=== PATIENT | female | born 1990 | race African-American/Black ===

== ENCOUNTER → 2017-01-20 | Day surgery (SDC) | payer OTHER ==
[~2017-01-20] MED LIST: CLIN150 PO; DILA4TAB2 PO; EPINEPHrine HCL (1:1000) 1 MG/ML VIAL ONE; FLEEENE3 RECTAL; HYDR-3533 PO; HYDROmorphone HCL PF 2 MG/ML VIAL ONE; IBUP800T23 PO; KETOROLAC TROMETHAMINE 30 MG/ML (IVP) VIAL IV PUSH ONE; LACTATED RINGER'S 1000 ML INJ 1,000 ML ONE; LIDOCAINE 1%/EPINEPHrine 1:100,000 SOLN 50 ML VIAL ONE; MIDAZOLAM HCL 2 MG/2 ML VIAL ONE; MIRA33504 PO; NAPR220T95 PO; ONDANSETRON HCL 4 MG/2 ML VIAL ONE; PROPOFOL 200 MG/20 ML AMP IV ONE; SODIUM CHLORIDE 0.9% 20 ML VIAL ONE; ceFAZolin 2 GM PREMIX 50 ML ONE; oxyCODONE/ACETAMINOPHEN 5 MG/325 MG TAB ONE
--- NOTE | 2017-01-31 23:31 | MP ---
cc: KACEY NOVOA M.D. DATE OF SURGERY 01/20/17 PREOPERATIVE DIAGNOSES Bilateral extensive hidradenitis of axilla with abscess. POSTOPERATIVE DIAGNOSIS Bilateral extensive hidradenitis of axilla with abscess. OPERATION Wide excision bilateral axillary hidradenitis SURGEON Dr. Chuck Novoa ANESTHESIA General INDICATIONS This is a 26-year-old black female with chronic hidradenitis involving both axillae in numerous spots and heavily scarred area with deep tracks. She underwent detailed explanation of the surgery in the office, particularly that in the acutely inflamed stage a closure or a skin graft is not appropriate and that the wounds will have to be left open. The patient and the mother agreed with the surgical plan, the possibility of bleeding, infection, chronic wound care, excessive pain and future surgeries was pointed out and they are eager to go ahead with the procedure. PROCEDURE IN DETAIL The patient was brought to the operating room, was given supine position. Anesthesia was started. Prep and drape was done. IV antibiotic had been given. The time-out was called and completed. The overall outline of the hidradenitis was marked both on the axillary side and on the chest side on both right and left sides. The area surrounding from outside towards the center were tumesced with mixture of saline, lidocaine with epi and additional epinephrine to allow hemostasis and also hydrodissection. The excision was carried out using a cutting and coagulating Bovie current starting straight from the skin into the normal appearing fat working from all sides until the center part was reached. It was not noted that the central part extends very deep under the anterior axillary fold, more so on the right than the left. The majority of the soft tissue and the gland bearing skin was excised and the areas were double checked for additional spots and then injecting more tumescent fluid as needed. The remaining deep areas were cleaned also looking for the axillary neurovascular bundles. The major neurovascular bundles were fairly close to the last portion of the deep abscess track on the right side. The left side was more superficial. The neurovascular bundles were protected and all the hidradenitis baring tissues were successfully removed and discarded. Hemostasis was completed. No major artery or vein bleeding was encountered. The smaller bleeding were coagulated. Areas were washed clean and packed with saline wet to dry Kimberly bandage dressing. The patient remained stable. Intraoperative blood loss less than 10-15 mL. There were no complications. signed, not fully reviewed MD DOUGLAS Lobato/ /11:55 AM /11:16 PM NEIDA
== END | disposition home or self-care (01) ==
LOC: ESDC 09:22
PROVIDERS: ATTEND Plastic Surgery
DX: L73.2 Hidradenitis suppurativa (principal)
CPT/HCPCS: 00400; 01610; 11450; 38525; 88305; 88307; J0171; J0690; J1170; J1885; J2250; J2405; J3010; J7120

== ENCOUNTER 2017-01-21 14:05 | Emergency (ER) | payer OTHER ==
[~2017-01-21] VITALS: Ht 167.6 cm; Wt 52.3 kg
[~2017-01-21 14:05] MED LIST changes: -DILA4TAB2 PO; -EPINEPHrine HCL (1:1000) 1 MG/ML VIAL ONE; -FLEEENE3 RECTAL; -HYDROmorphone HCL PF 2 MG/ML VIAL ONE; -KETOROLAC TROMETHAMINE 30 MG/ML (IVP) VIAL IV PUSH ONE; -LACTATED RINGER'S 1000 ML INJ 1,000 ML ONE; -LIDOCAINE 1%/EPINEPHrine 1:100,000 SOLN 50 ML VIAL ONE; -MIDAZOLAM HCL 2 MG/2 ML VIAL ONE; -MIRA33504 PO; -NAPR220T95 PO; -ONDANSETRON HCL 4 MG/2 ML VIAL ONE; -PROPOFOL 200 MG/20 ML AMP IV ONE; -SODIUM CHLORIDE 0.9% 20 ML VIAL ONE; -ceFAZolin 2 GM PREMIX 50 ML ONE; -oxyCODONE/ACETAMINOPHEN 5 MG/325 MG TAB ONE
[2017-01-21 14:08] VITALS: BP 113/76; PULSE 76; RESP 20; TEMP 98.6; O2SAT 100
--- NOTE | 2017-01-21 15:21 | PD ---
HPI Chief Complaint: Bleeding Time Seen by Provider: 14:46 Travel History International Travel<30 days: No Contact w/Intl Traveler<30days: No Traveled to known affect area: No History of Present Illness HPI 26-year-old female complains of bleeding from left axilla. Patient status post left axilla surgery for hidradenitis area patient states that she started having increasing bleeding from the left axilla area since surgery. Patient denies other new problem. PFSH Past Medical History ?: Not Social History Alcohol Use: No Tobacco Use: No Substance Use: No Allergies-Medications (Allergen,Severity, Reaction): Coded Allergies: No Known Allergies (Unverified , 01/21/17) Reported Meds & Prescriptions Reported Meds & Active Scripts Active Reported Aleve (Naproxen Sodium) 220 Mg Tab 220 Mg PO BID PRN Dilaudid (Hydromorphone HCl) 4 Mg Tab 4 Mg PO Q6H PRN Review of Systems General / Constitutional: No: Fever Eyes: No: Visual changes HENT: No: Headaches Cardiovascular: No: Chest Pain or Discomfort Respiratory: No: Shortness of Breath Gastrointestinal: No: Abdominal Pain Genitourinary: No: Dysuria Musculoskeletal: No: Pain Skin: No Rash Neurologic: No: Weakness Psychiatric: No: Depression Endocrine: No: Polydipsia Hematologic/Lymphatic: No: Easy Bruising Physical Exam Narrative GENERAL: Well-nourished, well-developed patient. SKIN: Focused skin assessment warm/dry. HEAD: Normocephalic. EYES: No scleral icterus. No injection or drainage. NECK: Supple, trachea midline. No JVD or lymphadenopathy. CARDIOVASCULAR: Regular rate and rhythm without murmurs, gallops, or rubs. RESPIRATORY: Breath sounds equal bilaterally. No accessory muscle use. GASTROINTESTINAL: Abdomen soft, non-tender, nondistended. MUSCULOSKELETAL: No cyanosis, or edema. BACK: Nontender without obvious deformity. No CVA tenderness. Patient has a large surgical wound on left axilla with active arterial bleeding sources. Data Data Last Documented VS Vital Signs Date Time Temp Pulse Resp B/P Pulse Ox O2 Delivery O2 Flow Rate FiO2 01/21/17 14:08 98.6 76 20 113/76 100 Room Air MDM Medical Decision Making Medical Screen Exam Complete: Yes Emergency Medical Condition: Yes Differential Diagnosis Differential diagnosis including bleeding from surgical wound. Narrative Course 26-year-old female with active bleeding from left axilla status post left axilla surgery for hidradenitis. Dr. Novoa, surgeon came to see the patient and ligated the active bleeding source. 3-0 Vicryl suture was used. Melita powder applied. Dressing applied. Patient advised to follow-up with him in the office tomorrow morning. Diagnosis Primary Impression: Encounter for postoperative wound check Additional Impression: Bleeding Patient Instructions: General Instructions Additional Instructions: Follow-up with plastic surgeon in a.m. as scheduled. Return if worse. Med/Other Pt SpecificInfo: No Change to Meds Disposition: 01 DISCHARGE HOME Condition: Stable Jarred Ford MD Jan 21, 2017 15:21
[2017-01-21] MEDS ORDERED: DILA4TAB2 PO (15:36)
[2017-01-21] MEDS ORDERED: NAPR220T95 PO (15:36)
--- NOTE | 2017-01-22 07:58 | MB ---
cc: KACEY CALVERT MD DATE OF CONSULTATION 01/21/2017 REASON FOR CONSULTATION Left axillary postoperative bleeding. HISTORY This is a 26-year-old black female who underwent surgery by myself on 12/19/2016 for bilateral extensive hidradenitis with wide resection. She had a small vessel bleed immediately postop in the recovery room that was suture ligated on the right side. She was asked to come and change the dressing at the [facility] by the nursing staff. The patient went to the clinic in the morning and the dressing on the right side was removed. The dressing on the left side was noted to be very adherent and the gauze was noted to be saturated. Only part of the dressing was removed and a new dressing was placed. The right side was dressed as well and the patient was allowed to go home. Subsequently, she called a few hours later saying that the left side the new dressing had become situated. She was instructed to put pressure on the area and return to the emergency room at [facility] where she is being seen. The patient otherwise is stable. PHYSICAL EXAM The examination shows the 26-year-old black female resting comfortably in the ER bed. VITAL: Normal. GENERAL: She is not in any distress. She is in a moderate amount of pain when the dressings are manipulated. There is a steady drip noted on the lower part of the wound on the medial arm side. The axilla itself is actually tightly packed. The dressing was soaked with saline and was slowly peeled off. There are about four arterial small vessels noted to be pumping mostly on the chest side of the wound. These were controlled with hemostats in the beginning and the area was anesthetized with lidocaine 1% with epi, prepped with Betadine and suture ligated using 3-0 Vicryl suture ligature. The active bleeding points were ligated. Four arterial points needed to be ligated. The rest appeared to be oozing with some minor capillary bleeding. Local pressure was applied for a few minutes. No active venous or arterial bleeding was present. The wound needed some additional hemostatic sponge or powder which was not available in the ER. The emergency room physician, Dr. Ford, has kindly agreed to do this for me. The hemostatic material will be obtained from the operating room, applied to the wound and the wound dressed with Xeroform, 4x4 and tape. The patient was instructed to come back and see me in the [facility] tomorrow for the first dressing change. Approximate blood loss during the procedure 50-60 cc total. The patient remained stable. No other issues. signed, not fully reviewed MD DOUGLAS Lobato/LUIS ANTONIO /7:22 AM :39 AM MTDPasha
== END 2017-01-21 16:12 | disposition home or self-care (01) ==
LOC: NEPD 14:05
DX: L76.22 Postprocedural hemorrhage of skin and subcutaneous tissue following other procedure (principal)
CPT/HCPCS: 12001

== ENCOUNTER 2017-01-29 16:52 | Emergency (ER) | payer OTHER ==
[~2017-01-29 16:52] MED LIST changes: -CLIN150 PO; +DILA4TAB2 PO; -HYDR-3533 PO; -IBUP800T23 PO; +NAPR220T95 PO
[2017-01-29 16:53] VITALS: BP 118/84; PULSE 98; RESP 20; TEMP 98.7; O2SAT 100
--- NOTE | 2017-01-29 17:22 | PD ---
Physical Exam Time Seen by Provider: 17:18 Narrative 26 yo F c/o abd pain and constipation. Had surgery to arms, due to infection a week ago, and was given Dilaudid. No bowel movement in 1 week. Tried OTC treatments with no success. Denies fever, vomiting. VSS. Patient seen in triage. Awaiting bed placement. Data Data Last Documented VS Vital Signs Date Time Temp Pulse Resp B/P Pulse Ox O2 Delivery O2 Flow Rate FiO2 01/29/17 16:53 98.7 98 20 118/84 100 Room Air MDM Supervised Visit with LEANDRA: Shilpa Mcknight Jan 29, 2017 17:22
--- NOTE | 2017-01-29 19:56 | PD ---
HPI Chief Complaint: GI Complaint Time Seen by Provider: 19:10 Travel History International Travel<30 days: No Contact w/Intl Traveler<30days: No Traveled to known affect area: No History of Present Illness HPI Patient 26-year-old female who is postoperative from hidradenitis super TV operation and bilateral axilla. Patient had procedure approximately 10 days ago and is taking Dilaudid tablets since then. Patient presents today because she is feeling "like there is [stool] at the edge of her rectum that out." Patient states she's not have a regular bowel movement in some time. She also endorses some lower quadrant abdominal cramping. Denies any vaginal bleeding vaginal discharge blood in the stool dark in the stool. She is tried fleets enemas at home held in for 24 minutes before tending stool which is unsuccessful. PFSH Past Medical History Medical History: Denies Significant Hx ?: Not : 1 Para: 1 Past Surgical History Other Surgery: Yes (surgery to bilateral armpits ) Social History Alcohol Use: No Tobacco Use: No Substance Use: No Allergies-Medications (Allergen,Severity, Reaction): Coded Allergies: No Known Allergies (Unverified , 01/21/17) Reported Meds & Prescriptions Reported Meds & Active Scripts Active Miralax Powder (Polyethylene Glycol 3350 Powder) 17 Gm Powd 17 Gm PO DAILY 7 Days Mix and dissolve one measuring cap-ful (17 grams) in water or juice. Fleet Enema Rectal (Sodium Phosphates Rectal) 7-19 Gm/118 Ml Enem 118 Ml RECTAL Q8HR PRN Review of Systems Except as stated in HPI: all other systems reviewed are Neg Physical Exam Narrative GENERAL: Well-developed well-nourished, no apparent distress. SKIN: Focused skin assessment warm/dry. Postoperative wounds to bilateral axillae clean dry and intact. HEAD: Atraumatic. Normocephalic. EYES: Pupils equal and round. No scleral icterus. No injection or drainage. ENT: No nasal bleeding or discharge. Mucous membranes pink and moist. NECK: Trachea midline. No JVD. CARDIOVASCULAR: Regular rate and rhythm. No murmur appreciated. RESPIRATORY: No accessory muscle use. Clear to auscultation. Breath sounds equal bilaterally. GASTROINTESTINAL: Abdomen soft, non-tender, nondistended. Hepatic and splenic margins not palpable. MUSCULOSKELETAL: No obvious deformities. No clubbing. No cyanosis. No edema. Rectal exam shows hard stool at the very tip finger. Patient impaction was partially removed limited secondary to patient discomfort. No gross blood during rectal exam. NEUROLOGICAL: Awake and alert. No obvious cranial nerve deficits. Motor grossly within normal limits. Normal speech. PSYCHIATRIC: Appropriate mood and affect; insight and judgment normal. Data Data Last Documented VS Vital Signs Date Time Temp Pulse Resp B/P Pulse Ox O2 Delivery O2 Flow Rate FiO2 01/29/17 20:00 88 20 118/75 99 Room Air 01/29/17 16:53 98.7 Orders Ed Urine Pregnancytest Poc (01/29/17 19:55) Abdomen, Kub Only (01/29/17 ) MDM Medical Decision Making Medical Screen Exam Complete: Yes Emergency Medical Condition: Yes Differential Diagnosis Impaction, constipation, opiate-induced constipation. Narrative Course Patient was roomed in emergency department she was partially disimpacted secondary to her discomfort. She was offered pain medicine and declined. test was negative in the emergency department. X-ray confirms a fair amount of stool in both the descending transverse portions of the colon there was a small amount ascending on as well. Discussed with the patient's of the medic management home recommend repeat fleets enemas and follow-up with her surgeon as well as her primary care physician. She would like to try a disimpaction again and it was reattempted prior to discharge however patient still having significant discomfort and was unable to push the stool down into reach. Diagnosis Primary Impression: Constipation Qualified Code: K59.01 - Slow transit constipation Med/Other Pt SpecificInfo: Prescription(s) given Scripts Polyethylene Glycol 3350 Powder (Miralax Powder)17 Gm Powd17 Gm PO DAILY 7 Days Ref 0 Mix and dissolve one measuring cap-ful (17 grams) in water or juice. Prov:Monico Tavares MD 01/29/17 Sodium Phosphates Rectal (Fleet Enema Rectal)7-19 Gm/118 Ml [id number] Ml RECTAL Q8HR PRN (CONSTIPATION) #5 BOTTLE Ref 0 Prov:Monico Tavares MD 01/29/17 Disposition: 01 DISCHARGE HOME Condition: Stable Monico Tavares MD Jan 29, 2017 19:56
[2017-01-29 20:00] VITALS: BP 118/75; PULSE 88; RESP 20; O2SAT 99
[2017-01-29] MEDS ORDERED: MIRA33504 PO (21:38)
[2017-01-29] MEDS ORDERED: FLEEENE3 RECTAL (21:38)
--- NOTE | 2017-01-29 21:43 | RADRPT ---
EXAM DATE/TIME: 01/29/2017 21:17 [facility] COMPARISON: No previous studies available for comparison. INDICATIONS : Constipation. MEDICAL HISTORY : None. SURGICAL HISTORY : None. ENCOUNTER: Initial ACUITY: 1 day PAIN SCORE: 10/28 LOCATION: entire abdomen. FINDINGS: Supine view of the abdomen was performed. A moderate amount of stool is noted throughout the colon. N o abnormal masses, calcifications, or organomegaly is seen. The osseous structures are unremarkable. CONCLUSION: Moderate amount of stool throughout the colon characteristic of the history of silva rubyrafa. Lamin Vee MD on January 29, 2017 at 21:41 Board Certified Radiologist. This report was verified electronically.
== END 2017-01-29 22:05 | disposition home or self-care (01) ==
LOC: NEPD 16:52
DX: K59.00 Constipation, unspecified (principal)
CPT/HCPCS: 74000; 84703; 99283

== ENCOUNTER 2018-04-23 20:59 | Inpatient (IN) ==
[2018-04-23] MEDS ORDERED: Clindamycin 900 mg/NS Premix 900 MG/50 ML PIGGYBACK IV.SIG ONE (23:08)
[2018-04-23] MEDS ORDERED: Morphine Sulfate Inj 2 MG/ML Vial IV.PUSH ONE (23:13)
[2018-04-23] MEDS ORDERED: Sod Chloride 0.9% Inj 1,000 ML IV.SIG ONE (23:13)
[2018-04-23 23:59] LABS: Baso % (Auto) 0.3 % (0.0-2.0); Eos # (Auto) 0.2 th/mm3 (0.0-0.4); Eos % (Auto) 2.2 % (0.0-4.0); Hematocrit 38.6 % (35.0-46.0); Hemoglobin 12.6 gm/dL (11.6-15.3); Lymph # (Auto) 2.2 th/mm3 (1.0-4.8); Lymph % (Auto) 20.5 % (9.0-44.0); Mean Corpuscular HGB Conc 32.7 % (32.0-36.0); Mean Corpuscular Hemoglobin 29.9 pg (27.0-34.0); Mean Corpuscular Volume 91.4 fL (80.0-100.0); Mean Platelet Volume 6.9 fL (7.0-11.0); Mono # (Auto) 0.8 th/mm3 (0.0-0.9); Mono % (Auto) 7.4 % (0.0-8.0); Neut # (Auto) 7.6 th/mm3 (1.8-7.7); Neut % (Auto) 69.6 % (16.0-70.0); Platelet Count 325 th/mm3 (150-450); Red Blood Count 4.22 mil/mm3 (4.00-5.30); Red Cell Distribution Width 12.7 % (11.6-17.2); White Blood Count 10.9 th/mm3 (4.0-11.0)
--- NOTE | 2018-04-24 00:02 | ED ---
HPI General Chief complaint: Skin/Abscess/Foreign Body Stated complaint: Poss Cyst in left breast Time Seen by Provider: 04/23/18 23:00 Source: patient Mode of arrival: ambulatory Limitations: no limitations History of Present Illness HPI narrative: Patient is a 27-year-old female presenting to the emergency department for evaluation of possible abscess to her left breast. Patient states it started yesterday as a small pimple appearing area, today it spread across her whole breast. She reports 9 out of 10 pain, worse with palpation. She denies any fever, chills, nausea, vomiting, chest pain or shortness of breath. Patient had an excision to bilateral axilla in January due to hidradenitis. She is followed as outpatient for this and reports no issues with that procedure. MD complaint: abscess/boil and discoloration Onset (ago): day(s) (1) Location: chest (Left breast) Severity: severe Severity scale (1-10): 9 Quality: aching and constant Pain Consistency: constant Relieving factors: none Exacerbating factors: palpation Context: none Associated symptoms: denies other symptoms Treatments prior to arrival: none Related Data Previous Rx's Medication Instructions Recorded amoxicillin-pot clavulanate 1 tab PO Q12H 10 Days #20 tab 04/24/18 [Augmentin] Allergies Allergy/AdvReac Type Severity Reaction Status Date / Time No Known Allergies Allergy Unverified 04/23/18 22:45 Review of Systems Except as stated in HPI: all other systems reviewed are negative Constitutional Denies fever(s) Integumentary/Breasts Reports breast skin changes and Reports change in breast shape PMFSH Medical History Medical History Encounter for biopsy (Acute) Patient denies medical problems (Acute) Social History Social History Substance History: No History of Abuse Second Hand Smoke Exposure: No Smoking Status: Never smoker How Often Do You Have a Drink Containing Alcohol: Never Recent Travel in [facility] within the Last 8 Weeks: No Recent Out of Country Travel within the Last 8 Weeks: No Immunization History Tetanus Immunization: <5 Years Hx Influenza Vaccine This Season: No Exam Narrative Exam Narrative: GENERAL: Well-developed, well-nourished, alert -[place] female. Presenting in no acute distress. SKIN: Focused skin assessment warm/dry. Surgical excisions to bilateral axilla , no foul odor drainage noted. There is an 11 x 9 cm area of erythema to the left breast with a 6 cm x 4 cm area of fluctuance adjacent to the left nipple. Significantly tender to palpation and warm to the touch. No discharge from nipple noted. HEAD: Atraumatic. Normocephalic. EYES: Pupils equal and round. No scleral icterus. No injection or drainage. ENT: No nasal bleeding or discharge. Mucous membranes pink and moist. NECK: Trachea midline. No JVD. CARDIOVASCULAR: Regular rate and rhythm. No murmur appreciated. RESPIRATORY: No accessory muscle use. Clear to auscultation. Breath sounds equal bilaterally. GASTROINTESTINAL: Abdomen soft, non-tender, nondistended. Hepatic and splenic margins not palpable. MUSCULOSKELETAL: No obvious deformities. No clubbing. No cyanosis. No edema. NEUROLOGICAL: Awake and alert. No obvious cranial nerve deficits. Motor grossly within normal limits. Normal speech. PSYCHIATRIC: Appropriate mood and affect; insight and judgment normal. Course Initial Documented Vital Signs Temperature 99.2 F 04/23/18 22:45 Pulse Rate 81 04/23/18 22:45 Respiratory Rate 16 04/23/18 22:45 Blood Pressure 104/72 04/23/18 22:45 Pulse Oximetry 100 04/23/18 22:45 Last Documented Vital Signs Temperature 98.0 F 04/24/18 16:00 Pulse Rate 77 04/24/18 16:00 Respiratory Rate 18 04/24/18 16:00 Blood Pressure 103/63 04/24/18 16:00 Pulse Oximetry 100 04/24/18 16:00 Medical Decision Making LEANDRA Attestation LEANDRA supervised visit: Yes Attestation: I, Dr. Tavares, have reviewed the advance practice practitioner's documentation and am in agreement, met with the patient face to face, made the diagnosis, and the medical decision making was done by me. *My assessment and Findings: Patient seen and examined by me in addition to Lisa STEELE, 27-year-old female presents emergency department with recurrent left breast abscess. Fairly sizable on examination and I have suggested that she needs to be placed in observation status for consideration of surgical source control. Given the location of the breast abscess I think that she would do well to have a general surgery consult rather than the incised and drained in the emergency department. This was discussed with Jamal , she will call the appropriate consult MDM Narrative Medical decision making narrative: Patient is a 27-year-old female presenting with 1 day of increasing redness and swelling to her left breast. Exam appears consistent with an abscess, patient's vital signs are stable. Breast ultrasound and labs ordered and pending. IV access established. Patient will be given a dose of morphine prior to the ultrasound for pain relief. Labs reviewed, no acute findings identified. Ultrasound shows a bilobed abscess at the 6 o'clock position to the breast. Patient has received clindamycin and metronidazole. Due to the rapid progression of the cellulitis as well as the abscess in the breast itself. Patient will be admitted for general surgery consult as well as IV antibiotics. This was discussed with Dr. Lai who accepted admission. Differential Diagnosis Differential Diagnosis: Abscess versus cellulitis versus mastitis versus malignancy versus other Lab Data Result diagrams: 04/23/18 23:25 04/23/18 23:25 Lab Results 04/23/18 04/23/18 04/24/18 Range/Units 23:25 23:25 Unknown WBC 10.9 (4.0-11.0) th/mm3 RBC 4.22 (4.00-5.30) mil/mm3 Hgb 12.6 (11.6-15.3) gm/dL Hct 38.6 (35.0-46.0) % MCV 91.4 (80.0-100.0) fL MCH 29.9 (27.0-34.0) pg MCHC 32.7 (32.0-36.0) % RDW 12.7 (11.6-17.2) % Plt Count 325 (150-450) th/mm3 MPV 6.9 L (7.0-11.0) fL Neut % (Auto) 69.6 (16.0-70.0) % Lymph % (Auto) 20.5 (9.0-44.0) % [place] % (Auto) 7.4 (0.0-8.0) % Eos % (Auto) 2.2 (0.0-4.0) % Baso % (Auto) 0.3 (0.0-2.0) % Neut # (Auto) 7.6 (1.8-7.7) th/mm3 Lymph # (Auto) 2.2 (1.0-4.8) th/mm3 [place] # (Auto) 0.8 (0.0-0.9) th/mm3 Eos # (Auto) 0.2 (0.0-0.4) th/mm3 Baso # (Auto) 0.0 (0.0-0.2) th/mm3 WBC Differential . Differential Comment Auto diff final Sodium 143 (136-145) meq/L Potassium 4.0 (3.5-5.1) meq/L Chloride 108 H (98-107) meq/L Carbon Dioxide 25.4 (21.0-32.0) meq/L Anion Gap 10 (5-15) meq/L BUN 9 (7-18) mg/dL Creatinine 0.78 (0.50-1.00) mg/dL Estimated GFR Greater than 89 (>89) mL/min Random Glucose 92 (74-106) mg/dL Calcium 9.2 (8.5-10.1) mg/dL Urine Opiates Screen Pos H (Neg) Ur Barbiturates Screen Neg (Neg) Ur Amphetamines Screen Neg (Neg) U Benzodiazepines Scrn Neg (Neg) Urine Cocaine Screen Neg (Neg) U Cannabinoids Screen Neg (Neg) Imaging Data Radiologist's impression: ITS Impressions Needle Aspiration US 04/24/18 00:00 CONCLUSION: 1. Uncomplicated ultrasound-guided aspiration of 2.9 cm subareolar left breast abscess. Breast Ultrasound 04/24/18 23:45 CONCLUSION: Complex bilobed fluid collection at the 6:00 position in the left breast suggesting abscess in the proper clinical setting. Discharge Plan Discharge Disposition Patient Disposition: 30 Still Patient Discharge Condition Condition: Stable Discharge Order Discharge Orders: Discharge Order (Routine); Ordered 04/24/18 Ordered By: Chhaya Riley Discharge Details Anticipated Discharge Date: 04/24/18 Discharge Problem: Abscess of breast Physicians Team ED Provider: Monico Tavares ED Midlevel Provider: Lisa Solano Primary Care Provider: UNKNOWN, Attending Provider: Tahir Jensen Other Providers: Danny Samuel Status ED Status: Left Department Discharge Information Discharge Date/Time: 04/24/18 04:01
[2018-04-24 00:13] LABS: Anion Gap 10 meq/L (5-15); Blood Urea Nitrogen 9 mg/dL (7-18); Calcium 9.2 mg/dL (8.5-10.1); Carbon Dioxide 25.4 meq/L (21.0-32.0); Chloride 108 meq/L (98-107); Glomerular Filtration Rate Greater Than 89 mL/min (>89); Glucose,Random 92 mg/dL (74-106); Sodium 143 meq/L (136-145)
[2018-04-24] MEDS ORDERED: Morphine Inj 4 MG/ML Vial IV.PUSH ONE ×2 (01:00→01:06)
--- NOTE | 2018-04-24 01:46 | US ---
EXAM DATE: 04/24/2018 1:32 AM EDT AGE/SEX: 27 years / Female INDICATIONS: Left breast abscess. CLINICAL DATA: This is the patient's initial encounter. Patient reports that signs and symptoms have been present for 2 days and indicates a pain score of 8/10. MEDICAL/SURGICAL HISTORY: . Hidradenitis. . Excisions to bilateral axillas due to hidradenitis . COMPARISON: No prior exams available for comparison. TECHNIQUE: Real-time ultrasound examination was performed using a high-frequency transducer. Conven tional and compound scanning techniques were used. FINDINGS: Focused sonographic examination of the left breast was performed in the area of possible infection. A t the 6:00 position 1 to 2 cm from the nipple, there is a bilobed complex fluid collection measuring 3.9 x 3.4 x 3.8 cm in aggregate. CONCLUSION: Complex bilobed fluid collection at the 6:00 position in the left breast suggesting abscess in the pr oper clinical setting. Electronically signed by: Anuj Holguin MD 04/24/2018 1:45 AM EDT
[2018-04-24] MEDS ORDERED: Temazepam 15 MG Capsule PO PRN (03:01)
[2018-04-24] MEDS ORDERED: Acetaminophen 325 MG Tablet PO PRN (03:01)
[2018-04-24] MEDS ORDERED: Bisacodyl 10 MG Supp RECTAL PRN (03:01)
[2018-04-24] MEDS ORDERED: Vancomycin Inj 1 GM/200 ML PIGGYBACK IV.SIG ONE (03:04)
[2018-04-24] MEDS: Sod Chloride 0.9% Inj 1,000 ML IV.CONT SCH ×2 (03:53→15:08)
[2018-04-24] MEDS ORDERED: Vancomycin Consult Pharmacy 1 EACH OTHER SCH (04:00)
--- NOTE | 2018-04-24 10:56 | P.HP ---
<Chhaya Riley W - Last Filed: 04/24/18 18:27> History of Present Illness Primary Care Physician: Dr. Nubia Monsivais Chief Complaint: left breast pain and swelling History of Present Illness: This is a 27-year-old female patient with past medical history which includes hidradenitis. Patient also had right axillary hidradenitis with abscess 2016 then on 12/19/2016 patient underwent bilateral hidradenitis resection with Dr. Lofton. Patient is healing by secondary intention dressing changes every other day. Patient presents emergency department with complaints of left breast edema and pain. Patient reports that (2 days ago) she had itching on her left breast. Thursday patient noticed small pimple appearing area, today it spread across her whole breast. She reports 9 out of 10 pain at its worse, exacerbated by palpation. Patient reports that earlier today in the hospital the area on left breast, "popped and drained on its own." After the area spontaneously drained the pain resolved. She denies any fever, chills, nausea, vomiting, chest pain or shortness of breath. PMH: hidradenitis. Past surgical history: 12/19/2016 patient underwent bilateral hidradenitis resection with Dr. Lofton. FMH: reviewed and noncontributory Social: one drink 1-2 times a month when she goes out to eat denies tobacco use now or in the past denies illicit drug use - Diagnosis (1) Abscess of breast Estimated Total Length of Stay (Days): 3 Plans for Post Hospital Care: Home Review of Systems All other systems reviewed negative except as stated in [facility] - History History Provided By: Patient - Medical History Medical History: Medical History (Last Reviewed 04/24/18 @ 00:04 by CEDRIC Mohr) Encounter for biopsy Patient denies medical problems - Tobacco History Second Hand Smoke Exposure: No Smoking Status: Never smoker - Alcohol History How Often Do You Have a Drink Containing Alcohol: Never - Substance Use History Substance History: No History of Abuse - Travel History Recent Travel in the [place] Within the Last 8 Weeks: No Recent Travel Out of the Country Within the Last 8 Weeks: No - Immunization History Tetanus Immunization: <5 Years Hx Influenza Vaccine This Season: No Medications and Allergies Allergies Allergy/AdvReac Type Severity Reaction Status Date / Time No Known Allergies Allergy Unverified 04/23/18 22:45 Active Medications: Active Medications Acetaminophen (Tylenol) 650 mg PO Q4H PRN PRN Reason: Temp > 100.4 Hydrocodone Bitart/Acetaminophen ([place] 7.5/325) 1 tab PO Q6H PRN PRN Reason: breast pain Last Admin: 04/24/18 08:33 Dose: 1 tab Al Hydroxide/Mg Hydroxide (Milk Of Magnesia Liq) 30 ml PO Q12H PRN PRN Reason: Mild Constipation Bisacodyl (Dulcolax Supp) 10 mg RECTAL DAILY PRN PRN Reason: SEVERE CONSITIPATION Sodium Chloride (Ns Inj) 1,000 mls @ 100 mls/hr IV.CONT .Q10H [place] Last Admin: 04/24/18 03:53 Dose: 100 mls/hr Pharmacy Profile Note (Vancomycin Consult Pharmacy) 0 mls @ 0 mls/hr OTHER UNSCH [place] Vancomycin HCl 1,250 mg/ (Sodium Chloride) 262.5 mls @ 250 mls/hr IV.SIG Q12H [place] Lactulose (Lactulose Liq) 30 ml PO DAILY PRN PRN Reason: SEVERE CONSITIPATION Miscellaneous Information ([facility] Ordered Lab Info) 0 each OTHER ONCE ONE Stop: 04/25/18 14:46 Ondansetron HCl (Zofran Inj) 4 mg IV.PUSH Q6H PRN PRN Reason: NAUSEA OR VOMITING Sennosides (Senokot) 17.2 mg PO Q12H PRN PRN Reason: Moderate Constipation Sodium Chloride (Ns Flush) 2 ml IV.FLUSH PRN PRN PRN Reason: FLUSH AFTER USING IV ACCESS Temazepam (Restoril) 15 mg PO HS PRN PRN Reason: INSOMNIA Exam Vital signs: Vital Signs 04/23/18 22:45 04/24/18 04:57 04/24/18 08:00 Temperature 99.2 F 98.3 F 97.9 F Pulse Rate 81 70 77 Respiratory Rate 16 16 17 Blood Pressure 104/72 93/57 L 103/67 Pulse Oximetry 100 99 100 Intake & Output 04/23/18 04/24/18 04/24/18 18:59 06:59 18:59 Intake Total 1150 / 1150 Balance 1150 / 1150 Weight 65.771 kg Intake: IV 1150 / 1150 Cleocin 900 mg/NS Premix 900 mg 50 / 50 In 50 ml @ 100 mls/hr IV.SIG ONCE ONE Rx#:[id number] NS Inj 1,000 ML @ Wide Open IV. 1000 / 1000 SIG BOLUS ONE Rx#:[id number] Flagyl 500 MG Inj 100 ML @ 100 100 / 100 mls/hr IV.SIG ONCE ONE Rx#: [id number] Narrative: GENERAL: This is a well-nourished, well-developed patient, in no apparent distress. SKIN: Bilateral axilla healing by secondary intention dressing clean dry and intact. dressing removed area clean appears to be healing well no drainage noted. area left breast no drainage at this time, edema has improved nonpainful CARDIOVASCULAR: Regular rate and rhythm RESPIRATORY: Clear to auscultation. Breath sounds equal bilaterally. GASTROINTESTINAL: Abdomen soft, non-tender, nondistended. Normal active bowel sounds MUSCULOSKELETAL: Extremities without clubbing, cyanosis, or edema. NEURO: Alert & Oriented x4 to person, place, time, situation. Moves all ext x4 Results - Labs CBC & Chem 7: 04/23/18 23:25 04/23/18 23:25 Labs: Laboratory Results - last 24 hr 04/23/18 04/23/18 23:25 23:25 WBC 10.9 RBC 4.22 Hgb 12.6 Hct 38.6 MCV 91.4 MCH 29.9 MCHC 32.7 RDW 12.7 Plt Count 325 MPV 6.9 L Neut % (Auto) 69.6 Lymph % (Auto) 20.5 [place] % (Auto) 7.4 Eos % (Auto) 2.2 Baso % (Auto) 0.3 Neut # (Auto) 7.6 Lymph # (Auto) 2.2 [place] # (Auto) 0.8 Eos # (Auto) 0.2 Baso # (Auto) 0.0 WBC Differential . Differential Comment Auto diff final Sodium 143 Potassium 4.0 Chloride 108 H Carbon Dioxide 25.4 Anion Gap 10 BUN 9 Creatinine 0.78 Estimated GFR Greater than 89 Random Glucose 92 Calcium 9.2 - Imaging Impressions Breast Ultrasound 04/24/18 23:45 CONCLUSION: Complex bilobed fluid collection at the 6:00 position in the left breast suggesting abscess in the proper clinical setting. Caprini VTE Risk Assessment Caprini VTE Risk Assessment: No/Low Risk (score <= 1) Caprini Risk Assessment Model: Point Value = 1 Point Value = 2 Point Value = 3 Point Value = 5 Age 41-60 Minor surgery BMI > 25 kg/m2 Swollen legs Varicose veins or History of unexplained or recurrent spontaneous Oral contraceptives or hormone replacement Sepsis (< 1 month) Serious lung disease, including pneumonia (< 1 month) Abnormal pulmonary function Acute myocardial infarction Congestive heart failure (< 1 month) History of inflammatory bowel disease Medical patient at bed rest Age 61-74 Arthroscopic surgery Major open surgery (> 45 min) Laparoscopic surgery (> 45 min) Malignancy Confined to bed (> 72 hours) Immobilizing plaster cast Central venous access Age >= 75 History of VTE Family history of VTE Factor V Leiden Prothrombin [id number] Lupus anticoagulant Anticardiolipin antibodies Elevated serum homocysteine Heparin-induced thrombocytopenia Other congenital or acquired thrombophilia Stroke (< 1 month) Elective arthroplasty Hip, pelvis, or leg fracture Acute spinal cord injury (< 1 month) Prophylaxis Regimen: Total Risk Factor Score Risk Level Prophylaxis Regimen 0-1 Low Early ambulation 2 Moderate Order ONE of the following: *Sequential Compression Device (SCD) *Heparin 5000 units SQ BID 3-4 Higher Order ONE of the following medications: *Heparin 5000 units SQ TID *Enoxaparin/Lovenox 40 mg SQ daily (WT < 150 kg, CrCl > 30 mL/min) *Enoxaparin/Lovenox 30 mg SQ daily (WT < 150 kg, CrCl > 10-29 mL/min) *Enoxaparin/Lovenox 30 mg SQ BID (WT < 150 kg, CrCl > 30 mL/min) AND/OR *Sequential Compression Device (SCD) 5 or more Highest Order ONE of the following medications: *Heparin 5000 units SQ TID (Preferred with Epidurals) *Enoxaparin/Lovenox 40 mg SQ daily (WT < 150 kg, CrCl > 30 mL/min) *Enoxaparin/Lovenox 30 mg SQ daily (WT < 150 kg, CrCl > 10-29 mL/min) *Enoxaparin/Lovenox 30 mg SQ BID (WT < 150 kg, CrCl > 30 mL/min) AND *Sequential Compression Device (SCD) Assessment and Plan - Assessment (1) Abscess of breast Code(s): N61.1 - Abscess of the breast and nipple Status: Acute Plan: This is a 27-year-old female patient with past medical history which includes hidradenitis. Patient also had right axillary hidradenitis with abscess 2017 then on 12/19/2016 patient underwent bilateral hidradenitis resection with Dr. Lofton. Patient presents emergency department today with complaints of left breast edema and pain. Patient states it started yesterday as a small pimple appearing area, today it spread across her whole breast. - NPO initially -> regular diet after procedure -US guided aspiration completed cultures pending -Blood cultures pending -Patient given IV vancomycin, clindamycin and Flagyl in the ER -would like to keep patient until culture resulted. Patient reports she is unable to stay in the hospital due to kid care needs and she is asking to be DC' d home this evening - patient understands risks and continues to want DC - will DC patient on oral Augmentin x 10 days - patient to follow up with Dr. Monsivais in 2-3 days for results of pending cultures and further treatment DVT prophylaxis with SCDs <Tahir Jensen - Last Filed: 05/10/18 23:27> History of Present Illness Primary Care Physician: UNKNOWN - Diagnosis (1) Abscess of breast Inpatient Certification: I certify that the inpatient services were ordered in accordance with Medicare regulations governing the order. This includes certification that hospital inpatient services are reasonable and necessary and in the case of services not specified as inpatient-only under 42 CFR 419.22(n), that they are appropriately provided as inpatient services in accordance to with the 2-midnight benchmark under 43 CFR 412.3(e) [facility] - Medical History Medical History: Medical History (Last Reviewed 04/24/18 @ 00:04 by CEDRIC Mohr) Encounter for biopsy Patient denies medical problems Results - Labs CBC & Chem 7: 04/23/18 23:25 04/23/18 23:25 Caprini VTE Risk Assessment Caprini Risk Assessment Model: Point Value = 1 Point Value = 2 Point Value = 3 Point Value = 5 Age 41-60 Minor surgery BMI > 25 kg/m2 Swollen legs Varicose veins or History of unexplained or recurrent spontaneous Oral contraceptives or hormone replacement Sepsis (< 1 month) Serious lung disease, including pneumonia (< 1 month) Abnormal pulmonary function Acute myocardial infarction Congestive heart failure (< 1 month) History of inflammatory bowel disease Medical patient at bed rest Age 61-74 Arthroscopic surgery Major open surgery (> 45 min) Laparoscopic surgery (> 45 min) Malignancy Confined to bed (> 72 hours) Immobilizing plaster cast Central venous access Age >= 75 History of VTE Family history of VTE Factor V Leiden Prothrombin [id number] Lupus anticoagulant Anticardiolipin antibodies Elevated serum homocysteine Heparin-induced thrombocytopenia Other congenital or acquired thrombophilia Stroke (< 1 month) Elective arthroplasty Hip, pelvis, or leg fracture Acute spinal cord injury (< 1 month) Prophylaxis Regimen: Total Risk Factor Score Risk Level Prophylaxis Regimen 0-1 Low Early ambulation 2 Moderate Order ONE of the following: *Sequential Compression Device (SCD) *Heparin 5000 units SQ BID 3-4 Higher Order ONE of the following medications: *Heparin 5000 units SQ TID *Enoxaparin/Lovenox 40 mg SQ daily (WT < 150 kg, CrCl > 30 mL/min) *Enoxaparin/Lovenox 30 mg SQ daily (WT < 150 kg, CrCl > 10-29 mL/min) *Enoxaparin/Lovenox 30 mg SQ BID (WT < 150 kg, CrCl > 30 mL/min) AND/OR *Sequential Compression Device (SCD) 5 or more Highest Order ONE of the following medications: *Heparin 5000 units SQ TID (Preferred with Epidurals) *Enoxaparin/Lovenox 40 mg SQ daily (WT < 150 kg, CrCl > 30 mL/min) *Enoxaparin/Lovenox 30 mg SQ daily (WT < 150 kg, CrCl > 10-29 mL/min) *Enoxaparin/Lovenox 30 mg SQ BID (WT < 150 kg, CrCl > 30 mL/min) AND *Sequential Compression Device (SCD) Assessment and Plan - Assessment (1) Abscess of breast Code(s): N61.1 - Abscess of the breast and nipple Status: Acute - Attending Attestation Patient examined. Assessment and plan formulated with Chhaya JARQUIN I agree with the above.
[2018-04-24 13:23] LABS: Amphetamine Screen,Urine Neg (Neg); Barbiturate Screen,Urine Neg (Neg); Cannabinoid Screen,Urine Neg (Neg); Cocaine Screen,Urine Neg (Neg)
[2018-04-24 13:34] LABS: Opiate Screen,Urine Pos (Neg)
[2018-04-24] MEDS ORDERED: Lidocaine PF 1% Inj 30 ML Vial ONE (14:35)
[2018-04-24] MEDS ORDERED: Vancomycin Inj 1,250 MG in Sodium Chlor 0.9% Inj 250 ML IV.SIG SCH (15:00)
--- NOTE | 2018-04-24 18:36 | P.DS ---
<Chhaya Riley W - Last Filed: 04/24/18 18:34> Date of admission: 04/24/18 02:52 Primary care physician: UNKNOWN Attending physician on discharge: Tahir Jensen Brief History from admission: This is a 27-year-old female patient with past medical history which includes hidradenitis. Patient also had right axillary hidradenitis with abscess 2016 then on 12/19/2016 patient underwent bilateral hidradenitis resection with Dr. Lofton. Patient is healing by secondary intention dressing changes every other day. Patient presents emergency department with complaints of left breast edema and pain. Patient reports that (2 days ago) she had itching on her left breast. Thursday patient noticed small pimple appearing area, today it spread across her whole breast. She reports 9 out of 10 pain at its worse, exacerbated by palpation. Patient reports that earlier today in the hospital the area on left breast, "popped and drained on its own." After the area spontaneously drained the pain resolved. She denies any fever, chills, nausea, vomiting, chest pain or shortness of breath. PMH: hidradenitis. Past surgical history: 12/19/2016 patient underwent bilateral hidradenitis resection with Dr. Lofton. FMH: reviewed and noncontributory Social: one drink 1-2 times a month when she goes out to eat denies tobacco use now or in the past denies illicit drug use DS: Diagnosis - Discharge Diagnosis (1) Abscess of breast Status: Acute DS: Summary Hospital Course: Abscess of breast This is a 27-year-old female patient with past medical history which includes hidradenitis. Patient also had right axillary hidradenitis with abscess 2016 then on 12/19/2016 patient underwent bilateral hidradenitis resection with Dr. Lofton. Patient presents emergency department today with complaints of left breast edema and pain. Patient states it started yesterday as a small pimple appearing area, today it spread across her whole breast. - NPO initially -> regular diet after procedure -US guided aspiration of left breast by IR completed cultures pending -Blood cultures pending -Patient given IV vancomycin, clindamycin and Flagyl in the ER -would like to keep patient until culture resulted. Patient reports she is unable to stay in the hospital due to kid care needs and she is asking to be DC' d home this evening - patient understands risks and continues to want DC - will DC patient on oral Augmentin x 10 days - patient to follow up with Dr. Monsivais in 2-3 days for results of pending cultures and further treatment DVT prophylaxis with SCDs - Time Spent with Patient Total time spent providing and/or coordinating discharge services: Greater than 30 minutes Exam Vital signs: Vital Signs 04/23/18 22:45 04/24/18 04:57 04/24/18 08:00 Temperature 99.2 F 98.3 F 97.9 F Pulse Rate 81 70 77 Respiratory Rate 16 16 17 Blood Pressure 104/72 93/57 L 103/67 Pulse Oximetry 100 99 100 04/24/18 12:00 04/24/18 12:57 04/24/18 16:00 Temperature 98.1 F 98.5 F 98.0 F Pulse Rate 78 79 77 Respiratory Rate 19 16 18 Blood Pressure 97/58 L 99/63 L 103/63 Pulse Oximetry 98 100 100 Intake & Output 04/23/18 04/24/18 04/24/18 18:59 06:59 18:59 Intake Total 1150 / 1150 1680 / 1680 Balance 1150 / 1150 1680 / 1680 Weight 65.771 kg Intake: IV 1150 / 1150 1200 / 1200 NS Inj 1,000 ML @ 100 mls/hr IV 1000 / 1000 .CONT .Q10H [facility] ROS[facility] Rx#:[id number] Cleocin 900 mg/NS Premix 900 mg 50 / 50 In 50 ml @ 100 mls/hr IV.SIG ONCE ONE Rx#:[id number] NS Inj 1,000 ML @ Wide Open IV. 1000 / 1000 SIG BOLUS ONE Rx#:[id number] Vancomycin Inj 1 gm In 200 ml @ 200 / 200 200 mls/hr IV.SIG ONCE ONE Rx# :[id number] Flagyl 500 MG Inj 100 ML @ 100 100 / 100 mls/hr IV.SIG ONCE ONE Rx#: [id number] Oral 480 / 480 Other: # Voids 4 Date of Last Bowel Movement 04/23/18 # Bowel Movements 0 Narrative: GENERAL: This is a well-nourished, well-developed patient, in no apparent distress. SKIN: Bilateral axilla healing by secondary intention dressing clean dry and intact. dressing removed area clean appears to be healing well no drainage noted. area left breast no drainage at this time, edema has improved nonpainful CARDIOVASCULAR: Regular rate and rhythm RESPIRATORY: Clear to auscultation. Breath sounds equal bilaterally. GASTROINTESTINAL: Abdomen soft, non-tender, nondistended. Normal active bowel sounds MUSCULOSKELETAL: Extremities without clubbing, cyanosis, or edema. NEURO: Alert & Oriented x4 to person, place, time, situation. Moves all ext x4 Results Procedures completed during hospitalization: US guided aspiration left breast by IR 04/24/18 Labs on day of discharge: Labs from last 24 hours 04/24/18 04/23/18 04/23/18 Unknown 23:25 23:25 WBC 10.9 RBC 4.22 Hgb 12.6 Hct 38.6 MCV 91.4 MCH 29.9 MCHC 32.7 RDW 12.7 Plt Count 325 MPV 6.9 L Neut % (Auto) 69.6 Lymph % (Auto) 20.5 [place] % (Auto) 7.4 Eos % (Auto) 2.2 Baso % (Auto) 0.3 Neut # (Auto) 7.6 Lymph # (Auto) 2.2 [place] # (Auto) 0.8 Eos # (Auto) 0.2 Baso # (Auto) 0.0 WBC Differential . Differential Comment Auto diff final Sodium 143 Potassium 4.0 Chloride 108 H Carbon Dioxide 25.4 Anion Gap 10 BUN 9 Creatinine 0.78 Estimated GFR Greater than 89 Random Glucose 92 Calcium 9.2 Urine Opiates Screen Pos H Ur Barbiturates Screen Neg Ur Amphetamines Screen Neg U Benzodiazepines Scrn Neg Urine Cocaine Screen Neg U Cannabinoids Screen Neg Preliminary micro results at discharge 04/23/18 23:25 Aerobic Blood Culture - Preliminary Blood - Peripheral No growth in 1 day Anaerobic Blood Culture - Preliminary No growth in 1 day 04/23/18 23:30 Aerobic Blood Culture - Preliminary Blood - Peripheral No growth in 1 day Anaerobic Blood Culture - Preliminary No growth in 1 day - Impressions ITS Impressions Breast Ultrasound 04/24/18 23:45 CONCLUSION: Complex bilobed fluid collection at the 6:00 position in the left breast suggesting abscess in the proper clinical setting. <Tahir Jensen - Last Filed: 05/10/18 23:28> Date of admission: 04/24/18 02:52 Primary care physician: UNKNOWN DS: Diagnosis - Discharge Diagnosis (1) Abscess of breast Status: Acute DS: Summary Hospital Course: Patient examined. Assessment and plan formulated with Chhaya Riley PA-C. I agree with the above. - Time Spent with Patient Total time spent providing and/or coordinating discharge services: Greater than 30 minutes Results Labs on day of discharge: Preliminary micro results at discharge 04/24/18 14:50 Fungal Culture - Preliminary Abscess - Breast No growth in 2 weeks 04/24/18 14:50 Mycobacterial Culture - Preliminary Abscess - Breast No growth in 2 weeks - Impressions ITS Impressions Needle Aspiration US 04/24/18 00:00 CONCLUSION: 1. Uncomplicated ultrasound-guided aspiration of 2.9 cm subareolar left breast abscess. Breast Ultrasound 04/24/18 23:45 CONCLUSION: Complex bilobed fluid collection at the 6:00 position in the left breast suggesting abscess in the proper clinical setting. Discharge Plan - Discharge Order Discharge Orders: Discharge Order (Routine); Ordered 04/24/18 Ordered By: Chhaya Riley - Discharge Details Anticipated Discharge Date: 04/24/18 - Physicians Team Primary Care Provider: UNKNOWN, Attending Provider: Tahir Jensen Other Providers: Danny Samuel MD
[2018-04-25] MEDS ORDERED: Pharmacy Ordered Lab Info OTHER ONE (14:45)
--- NOTE | 2018-04-25 16:35 | US ---
EXAM DATE: 04/24/2018 2:42 PM EDT AGE/SEX: 27 years / Female INDICATIONS: Left breast fluid collection. CLINICAL DATA: This is the patient's initial encounter. Patient reports that signs and symptoms have been present for 2 weeks and indicates a pain score of 4/10. MEDICAL/SURGICAL HISTORY: . Left breast fluid collection. . COMPARISON: [facility] [place], US BREAST LEFT COMPLETE, 04/24/2018. . FLUID: Total volume of 4 cc of cloudy, red fluid was removed. Fluid was sent to lab for ordered studies. Post procedure scanning reveals no hematoma or other complication. . . TECHNIQUE: Ultrasound guidance for needle aspiration. Aspiration. The risks, benefits and alternatives to the procedure were explained and verbal and written consent w as obtained. The site was prepped in sterile fashion. Full sterile technique was used, including ca p, mask, sterile gloves and gown and a large sterile sheet. Hand hygiene and 2% chlorhexidine and/or betadine/alcohol prep was utilized per protocol for cutaneous antisepsis. The skin and subcutaneous tissues were infiltrated with local anesthetic solution. Sterile gel and sterile probe cover were u tilized for ultrasound guidance. With the patient on the ultrasound table, ultrasound imaging was used to select the most appropriate approach for aspiration. A dermatotomy was made with an 11 blade scalpel. A catheter was introduced into the cavity and fluid was collected. FINDINGS: Redemonstration of a 2.9 cm low density subcutaneous subareolar fluid collection. CONCLUSION: 1. Uncomplicated ultrasound-guided aspiration of 2.9 cm subareolar left breast abscess. Electronically signed by: Seymour Khalil MD 04/25/2018 4:33 PM EDT
== END 2018-04-24 20:27 | disposition home or self-care (01) ==
LOC: NEPD 20:59 → NEDA 04-24 02:52 → NEPHCDU 04-24 04:51
PROVIDERS: ADMIT Hospitalist; ATTEND Hospitalist
DX: N61.1 Abscess of the breast and nipple